=== PATIENT | male | born 1950 | race Caucasian/White ===

== ENCOUNTER 2018-05-23 21:56 | Emergency (ER) | payer BC, OTHER ==
[~2018-05-23] VITALS: Ht 180.3 cm; Wt 72.6 kg
[2018-05-23 22:07] VITALS: BP 177/100
--- NOTE | 2018-05-23 22:13 | NUR ---
PT AMBULATED TO BED 10 WITH VSS. ACCOMPANIED BY .
--- NOTE | 2018-05-23 22:30 | NUR ---
PT BIB SELF C/O FACIAL ITCHING AND PAIN FOR PAST 4-5 YEARS. PT STATES HE HAS BEEN SEEN BY PCP AND "THEY DONT KNOW WHAT IT IS ALL THEY DO IS GIVE ME SHOTS". REDNESS NOTED AROUND MOUTH , NO OPEN SKIN, NO SOB. PT SITTING IN BED, ANXIOUS, AT BEDSIDE.
--- NOTE | 2018-05-23 23:00 | NUR ---
DR JANE AT BEDSIDE EVALUATING PT.
[2018-05-23] MEDS ORDERED: methylPREDNISolone SS 125 MG in WATER STERILE 2 ML IM ONE (23:05)
[2018-05-23 23:40] VITALS: BP 177/98
--- NOTE | 2018-05-23 23:40 | NUR ---
Patient discharged with v/s stable. Written and verbal after care instructions given and explained. Patient alert, oriented and verbalized understanding of instructions. Ambulatory with steady gait. All questions addressed prior to discharge. ID band removed. Patient advised to follow up with PMD. Rx of ATARAX,PREDNISONE,CORTISPORIN given. Patient educated on indication of medication including possible reaction and side effects. Opportunity to ask questions provided and answered.
== END 2018-05-23 23:40 | disposition home or self-care (01) ==
LOC: MED 21:56
DX: R21 Rash and other nonspecific skin eruption (principal); H60.92 Unspecified otitis externa, left ear
CPT/HCPCS: 96372; 99283; J2930

== ENCOUNTER 2018-06-20 01:35 | Emergency (ER) | payer OTHER ==
[~2018-06-20] VITALS: Ht 175.3 cm; Wt 70.8 kg
[2018-06-20 01:49] VITALS: BP 142/80
--- NOTE | 2018-06-20 01:50 | NUR ---
PT PRESENTS TO ED WITH C/O ITCHING TO CHIN X 5 YEARS. PT DENIES CP, SOB, DIFFICULTY SWALLOWING. NO OBVIOUS RASH NOTED. PT PLACED INTO BED, PENDING MD CORDON.
[2018-06-20] MEDS ORDERED: diphenhydrAMINE 50 MG/ML VIAL IM ONE (02:15)
[2018-06-20] MEDS ORDERED: methylPREDNISolone SS 125 MG/2 ML VIAL IM ONE (02:15)
[2018-06-20 02:40] VITALS: BP 142/80
--- NOTE | 2018-06-20 02:40 | NUR ---
Patient discharged with v/s stable. Written and verbal after care instructions given and explained. Patient alert, oriented and verbalized understanding of instructions. Ambulatory with steady gait. All questions addressed prior to discharge. ID band removed. Patient advised to follow up with PMD. Rx of PREDNISONE, BENEDRYL given. Patient educated on indication of medication including possible reaction and side effects. Opportunity to ask questions provided and answered.
== END 2018-06-20 02:40 | disposition home or self-care (01) ==
LOC: MED 01:35
DX: T78.3XXA Angioneurotic edema, initial encounter (principal); R03.0 Elevated blood-pressure reading, without diagnosis of hypertension
CPT/HCPCS: 96372; 99283; J1200; J2930

== ENCOUNTER 2018-07-06 10:26 | Emergency (ER) | payer OTHER ==
[~2018-07-06] VITALS: Ht 170.2 cm; Wt 68.0 kg
[2018-07-06 11:13] VITALS: BP 128/79
--- NOTE | 2018-07-06 11:19 | NUR ---
PT. BIB ---SEEN IN OUR ER JUN 20, 2018 SAME COMPLAINT LOWER LIP SWELLING X LAST NIGHT PROGRESSED IN SWELLING AND PRURITUS X TODAY --PT ADMITS PRURITUS AND RASH PRIOR TO SWELLING--- NO AIRWAY COMPROMISE OR TONGUE INVOLVEMENT NOTED---FULL CLEAR SPEECH, NO ACCESSORY MUSCLE USE NOTED. RR EVEN AND UNLABORED. NO PAIN AT THIS TIME. NO N/V/D. ER MD MADE AWARE. SAFETY PRECAUTIONS IMPLEMENTED. WILL CONTINUE TO MONITOR.
--- NOTE | 2018-07-06 11:22 | NUR ---
RESIDENT AT BEDSIDE EVALUATING PATIENT AT THIS TIME.
[2018-07-06] MEDS ORDERED: DEXAMETHASONE 10 MG/ML VIAL IM ONE (12:25)
[2018-07-06] MEDS ORDERED: LORATADINE 10 MG TAB PO ONE (12:25)
--- NOTE | 2018-07-06 12:30 | NUR ---
PT. RESTING COMFORTABLY IN BED, RR EVEN AND UNLABORED. HOB ELEVATED. WILL CONTINUE TO MONITOR. AT BEDSIDE.
[2018-07-06 13:20] VITALS: BP 126/76
--- NOTE | 2018-07-06 13:20 | NUR ---
Patient discharged with v/s stable. Written and verbal after care instructions given and explained. Patient alert, oriented and verbalized understanding of instructions. Ambulatory with steady gait. All questions addressed prior to discharge. ID band removed. Patient advised to follow up with PMD. Rx of CLARITIN AND PEPCID given. Patient educated on indication of medication including possible reaction and side effects. Opportunity to ask questions provided and answered.
== END 2018-07-06 13:20 | disposition home or self-care (01) ==
LOC: MED 10:26
DX: T78.40XA Allergy, unspecified, initial encounter (principal); X58.XXXA Exposure to other specified factors, initial encounter
CPT/HCPCS: 96372; 99283; J1100

== ENCOUNTER 2018-07-11 12:30 | Emergency (ER) | payer OTHER ==
[~2018-07-11] VITALS: Ht 175.3 cm; Wt 67.8 kg
[2018-07-11 12:50] VITALS: BP 139/83
--- NOTE | 2018-07-11 15:08 | NUR ---
PT AMBULATED TO BED 8 Addendum: 07/11/18 at 1509 by MEDKCL PT AMBULATED TO BED 7
--- NOTE | 2018-07-11 15:08 | NUR ---
PT AMBULTED TO BED 7
--- NOTE | 2018-07-11 15:53 | NUR ---
ASSUMED PATIENT CARE, NURSING ASSESSMENT COMPLETED.
[2018-07-11] MEDS ORDERED: CLINDAMYCIN 600 MG/4 ML VIAL IM ONE (16:35)
[2018-07-11] MEDS ORDERED: DEXAMETHASONE 10 MG/ML VIAL IM ONE (16:35)
[2018-07-11] MEDS ORDERED: KETOROLAC 60 MG/2 ML VIAL IM ONE (16:35)
[2018-07-11 18:37] VITALS: BP 144/93
--- NOTE | 2018-07-11 18:39 | NUR ---
DISPO AND MEDICAL DECISION MAKING, DC HOME WITH INSTRUCTIONS AND PRESCRIPTIONS, ALL INSTRUCTIONS UNDERSTOOD BY PATIENT WELL, VS WNL, NO DISTRESS, DENIES PAIN.
== END 2018-07-11 18:39 | disposition home or self-care (01) ==
LOC: MED 12:30
DX: L73.9 Follicular disorder, unspecified (principal); E11.9 Type 2 diabetes mellitus without complications
CPT/HCPCS: 82948; 96372; 99283; J1100; J1885; J3490

== ENCOUNTER 2018-07-18 17:49 | Emergency (ER) | payer OTHER ==
[~2018-07-18] VITALS: Ht 167.6 cm; Wt 68.0 kg
[2018-07-18 18:11] VITALS: BP 139/103
--- NOTE | 2018-07-18 18:15 | NUR ---
VSS; PT AMBULATED TO LOBBY WITH .
--- NOTE | 2018-07-18 19:48 | NUR ---
PT AMBULATED TO BED 3 WITH VSS.
--- NOTE | 2018-07-18 19:53 | NUR ---
PATIENT PRESENTS TO ED WITH RASHES TO LIP AREA FOR NO S/S OF ANY DIFFICULTY BREATHING.DENIES N/V/D; SKIN IS PINK/WARM/DRY; AAOX4 WITH EVEN AND STEADY GAIT; LUNGS CLEAR BL; HR EVEN AND REGULAR; PT DENIES ANY FEVER, CP, SOB, OR COUGH AT THIS TIME; PATIENT STATES PAIN OF 0/10 AT THIS TIME; VSS; PATIENT POSITIONED FOR COMFORT; HOB ELEVATED; BEDRAILS UP X2; BED DOWN. ER MD MADE AWARE OF PT STATUS.
[2018-07-18] MEDS ORDERED: methylPREDNISolone SS 125 MG in WATER STERILE 2 ML IM ONE (21:50)
--- NOTE | 2018-07-18 22:07 | NUR ---
Patient discharged with v/s stable. Written and verbal after care instructions given and explained. Patient alert, oriented and verbalized understanding of instructions. Ambulatory with steady gait. All questions addressed prior to discharge. ID band removed. Patient advised to follow up with PMD. Rx of PREDNISONE AND BENEDRYL given. Patient educated on indication of medication including possible reaction and side effects. Opportunity to ask questions provided and answered.
[2018-07-18 22:09] VITALS: BP 124/70
== END 2018-07-18 22:07 | disposition home or self-care (01) ==
LOC: MED 17:49
DX: R21 Rash and other nonspecific skin eruption (principal); E11.9 Type 2 diabetes mellitus without complications; Z98.890 Other specified postprocedural states
CPT/HCPCS: 96372; 99283; J2930

== ENCOUNTER 2018-08-01 13:53 | Emergency (ER) | payer OTHER ==
[~2018-08-01] VITALS: Ht 175.3 cm; Wt 68.9 kg
[2018-08-01 14:00] VITALS: BP 144/84
--- NOTE | 2018-08-01 14:11 | NUR ---
PT AMBULATES TO BED 8
[2018-08-01] MEDS ORDERED: KEP500 PO (14:20)
[2018-08-01] MEDS ORDERED: GLIP5TAB4 PO (14:20)
[2018-08-01] MEDS ORDERED: METF1000 PO (14:20)
--- NOTE | 2018-08-01 14:25 | NUR ---
PATIENT PRESENTS TO ED WITH C/O RASH TO OROFACIAL AREA/NOSE/EYELIDS AND OUTER RIGHT THIGH X 1 DAY. DENIED N/V/D/FEVER. PT STATES THIS HAS HAPPENED BEFORE A FEW TIMES. NO SOB NOTED. RASH APPEARS RED/PUFFY. AAOX4 WITH EVEN AND STEADY GAIT, LUNGS CLEAR BL, PATIENT STATES PAIN OF 0/10 AT THIS TIME; VSS; PATIENT POSITIONED FOR COMFORT; HOB ELEVATED; BEDRAILS UP X2; BED DOWN. ER MD MADE AWARE OF PT STATUS.
[2018-08-01] MEDS ORDERED: methylPREDNISolone SS 125 MG/2 ML VIAL IVP ONE (15:00)
[2018-08-01] MEDS ORDERED: diphenhydrAMINE 50 MG/ML VIAL IVP ONE (15:00)
--- NOTE | 2018-08-01 15:22 | NUR ---
PT ASLEEP IN BED, AT BEDSIDE. NO ACUTE DISTRESS NOTED
[2018-08-01 16:37] VITALS: BP 144/84
== END 2018-08-01 16:38 | disposition home or self-care (01) ==
LOC: MED 13:53
DX: T78.40XA Allergy, unspecified, initial encounter (principal); E11.9 Type 2 diabetes mellitus without complications; Z79.84 Long term (current) use of oral hypoglycemic drugs; Z79.899 Other long term (current) drug therapy; X58.XXXA Exposure to other specified factors, initial encounter
CPT/HCPCS: 82948; 96374; 96375; 99283; J1200; J2930

== ENCOUNTER 2018-10-26 13:34 | Inpatient (IN) | payer OTHER ==
[~2018-10-26] VITALS: Ht 175.3 cm; Wt 70.8 kg
[~2018-10-26 13:34] MED LIST: GLIP5TAB4 PO; KEP500 PO; METF1000 PO
[2018-10-26 13:56] VITALS: BP 117/48
--- NOTE | 2018-10-26 14:09 | NUR ---
JULIEN MEDLEY EVALUATING PT
[2018-10-26] MEDS ORDERED: KETOROLAC 30 MG/ML VIAL IM ONE (14:10)
--- NOTE | 2018-10-26 16:17 | NUR ---
PT TO BED 7 VIA WHEELCHAIR
--- NOTE | 2018-10-26 16:37 | NUR ---
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 DENIES LOC. MILD SWELLING NOTED TO L KNEE, NO REDNESS OR BRUISING PRESENT. CAP REFIL <3 SECONDS, CMS INTACT. PT IS USING WHEELCHAIR DUE TO PAIN WHEN AMBULATING. SKIN IS PINK/WARM/DRY. BED IN LOW POSITION, SIDE RAIL UP X1, AT BEDSIDE.
--- NOTE | 2018-10-26 16:44 | NUR ---
DR. MEDLEY AT BEDSIDE
[2018-10-26] MEDS ORDERED: MORPHINE SULFATE 4 MG/ML SYR IM ONE (17:20)
--- NOTE | 2018-10-26 17:32 | NUR ---
PT LEFT TO CT
--- NOTE | 2018-10-26 17:56 | NUR ---
PT RETURNED FROM CT
--- NOTE | 2018-10-26 19:03 | NUR ---
PT RESTING IN BED, AT BEDSIDE
--- NOTE | 2018-10-26 19:04 | NUR ---
LEFT KNEE IMMOBILIZER PLACED ON PATIENT
[2018-10-26] MEDS ORDERED: NACL 0.9% 1,000 ML IV SCH (19:07)
[2018-10-26] MEDS ORDERED: ONDANSETRON 4 MG/2 ML VIAL IM/IVP PRN (19:10)
[2018-10-26] MEDS ORDERED: ZOLPIDEM 5 MG TAB PO PRN (19:10)
[2018-10-26] MEDS ORDERED: DOCUSATE SODIUM 100 MG GELCAP PO PRN (19:10)
[2018-10-26] MEDS ORDERED: HYDROcodone/APAP 5/325 MG 1 TAB TAB PO PRN (19:10)
[2018-10-26] MEDS ORDERED: ACETAMINOPHEN 325 MG TAB PO PRN (19:10)
--- NOTE | 2018-10-26 19:19 | NUR ---
X-RAY AT BEDSIDE.
--- NOTE | 2018-10-26 19:28 | NUR ---
LAB AT BEDSIDE
--- NOTE | 2018-10-26 19:29 | NUR ---
REPORT GIVEN TO ALIX SALDAÑA
--- NOTE | 2018-10-26 19:35 | NUR ---
RECEIVED REPORT FROM PIOTR SELF AT PT BEDSIDE. PT IS AAOX4 UNDERSTANDS [place] BUT PREFERS ER[place]AN, ON ROOM AIR. ABLE TO MAKE NEEDS KNOWN, ABLE TO FOLLOW COMMANDS. PT ABLE TO AMBULATE WITH STEADY GAIT, AND SKIN IS INTACT. PT HAS 20G IV TO RIGHT AC. DISCUSSED PLAN OF CARE WITH PT, PT VERBALIZED UNDERSTANDING. PT DENIES HAVING ANY PAIN. VITAL SIGNS STABLE, NO SIGNS OF DISTRESS NOTED. BED IN LOWEST POSITION, CALL LIGHT WITHIN REACH. WILL CONTINUE TO MONITOR. Addendum: 10/27/18 at 0439 by Jyotsna Rodriguez RN DISREGARD. WRONG INPUT.
[2018-10-26 19:44] LABS: BASOPHILS % (AUTO) 0.1 % (0.0-2.0); EOSINOPHILS % (AUTO) 0.3 % (0.0-4.0); HEMATOCRIT 41.9 % (36-52); LYMPHOCYTES # (AUTO) 1.2 K/uL (2.0-11.5); LYMPHOCYTES % (AUTO) 9.2 % (20.5-51.1); MEAN CORPUSCULAR HEMOGLOBIN 30 pg (27-31); MEAN CORPUSCULAR HGB CONC 34 g/dL (33-37); MEAN CORPUSCULAR VOLUME 89.7 fL (80-94); MONOCYTES # (AUTO) 0.8 K/uL (0.8-1.0); MONOCYTES % (AUTO) 5.8 % (1.7-9.3); NEUTROPHILS # (AUTO) 10.9 K/uL (1.8-7.7); NEUTROPHILS % (AUTO) 84.6 % (42.2-75.2); PLATELET COUNT (AUTO) 212 K/uL (140-450); RED BLOOD CELL COUNT(AUTO) 4.67 MIL/uL (4.20-6.10); WHITE BLOOD COUNT (AUTO) 12.9 K/uL (4.8-10.8)
--- NOTE | 2018-10-26 19:45 | NUR ---
Patient will be admitted to care of Dr. Harp. Admited to Med-Surg. Patient went to room 110-B, via gursalma by RN; patient assisted to bed, safety precautions in place. Belongings list completed. Report to PIOTR Collins. Addendum: 10/26/18 at 1999 by [email or web address] Patient will be admitted to care of Dr. Harp. Admited to Med-Surg. Patient went to room 110-B, via ela by RN; patient assisted to bed, safety precautions in place. Belongings list completed. Report to PIOTR Collins; RN aware patients will be bring list of medication.
--- NOTE | 2018-10-26 19:45 | NUR ---
PT ARRIVED TO UNIT VIA GURNEY. RECEIVED REPORT FROM HIGH VALUE ASSOCIATE ALIX AT PT BEDSIDE. PT IS AAOX4, ON ROOM AIR. ABLE TO MAKE NEEDS KNOWN, ABLE TO FOLLOW COMMANDS. PT UNABLE TO AMBULATE DUE TO FRACTURE TO LEFT LOWER EXTREMITY. PT STATUS POST FALL AT HOME, HAS ABRASION TO LEFT FRONTAL LOBE, PICTURES TAKEN AND ASSESSMENT WILL BE DONE. PT HAS 20G IV TO RIGHT AC. DISCUSSED PLAN OF CARE WITH PT, PT VERBALIZED UNDERSTANDING. OBTAINED MRSA SWAB AND SENT TO LAB. PT DENIES HAVING ANY PAIN. VITAL SIGNS STABLE, NO SIGNS OF DISTRESS NOTED. BED IN LOWEST POSITION WITH BED ALARM ON, CALL LIGHT WITHIN REACH. WILL CONTINUE TO MONITOR.
[2018-10-26 20:00] VITALS: BP 132/87
[2018-10-26 20:01] LABS: PROTHROMBIN TIME 9.8 secs (10.8-13.4)
[2018-10-26 20:03] LABS: ANION GAP 16.1 (8-16); CARBON DIOXIDE 25.2 mmol/L (21-32); CREATININE 1.2 mg/dL (0.7-1.3); POTASSIUM 4.3 mmol/L (3.5-5.1); TOTAL BILIRUBIN 0.9 mg/dL (0.0-1.0)
[2018-10-26] MEDS ORDERED: DEXTROSE 50% 50 ML SYR IVP PRN (20:10)
[2018-10-26] MEDS ORDERED: INSULIN LISPRO SLIDING SCALE 100 UNITS/ML VIAL SUBQ PRN (20:10)
[2018-10-26] MEDS ORDERED: LORazepam 2 MG/ML VIAL IVP PRN (20:10)
[2018-10-26 20:18] LABS: CHOL/HDL RATIO 2.7 (1-4.5); FREE T4 (FREE THYROXINE) 0.82 ng/dL (0.76-1.46); MAGNESIUM 1.9 mg/dL (1.8-2.4); PHOSPHORUS 3.8 mg/dL (2.5-4.9); THYROID STIMULATING HORMONE 1.74 uIU/mL (0.34-3.74)
[2018-10-26] MEDS: levETIRAcetam 500 MG TAB PO SCH (20:49)
[2018-10-26] MEDS: BLOOD GLUCOSE MONITORING 1 DEV DEV FS SCH (20:49)
[2018-10-26] MEDS: metFORMIN 500 MG TAB PO SCH (21:16)
--- NOTE | 2018-10-26 21:16 | NUR ---
ALL SCHEDULED PM MEDS GIVEN, PT TOLERATED WELL. GAVE DINNER ALONG WITH DM MEDICATIONS.
[2018-10-26] MEDS: MORPHINE SULFATE 2 MG/ML SYR IVP PRN (23:44)
--- NOTE | 2018-10-26 23:45 | NUR ---
ADMINISTERED PAIN MEDICATION FOR C/O 7/10 PAIN TO LEFT LOWER EXTREMITY. PT TOLERATED WELL. NO SIGNS OF DISTRESS NOTED. BED IN LOWEST POSITION WITH BED ALARM ON, CALL LIGHT WITHIN REACH. WILL CONTINUE TO MONITOR.
[2018-10-27] VITALS (7 sets, daily range): BP systolic 107–137; BP diastolic 64–82
--- NOTE | 2018-10-27 | NUR ---
PT DENIES HAVING ANY PAIN. VITAL SIGNS STABLE, NO SIGNS OF DISTRESS NOTED. PT REFUSED SCHEDULED ATIVAN. BED IN LOWEST POSITION WITH BED ALARM ON, CALL LIGHT WITHIN REACH. WILL CONTINUE TO MONITOR.
--- NOTE | 2018-10-27 02:18 | NUR ---
IV PUMP ALARM KEPT GOING OFF, PT'S ARM WAS FOLDED UNDER HIM. WOKE PT UP AND ASKED HIM TO KEEP ARM STRAIGHT.
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
--- NOTE | 2018-10-27 04:00 | NUR ---
PT DENIES HAVING ANY PAIN. VITAL SIGNS STABLE, NO SIGNS OF DISTRESS NOTED. BED IN LOWEST POSITION WITH BED ALARM ON, CALL LIGHT WITHIN REACH. WILL CONTINUE TO MONITOR.
[2018-10-27] MEDS: DEXT 5% /NACL 0.9% 1,000 ML IV SCH ×2 (04:54→20:24)
[2018-10-27] MEDS: BLOOD GLUCOSE MONITORING 1 DEV DEV FS SCH ×4 (06:22→19:04)
[2018-10-27] MEDS: glipiZIDE 5 MG TAB PO SCH ×3 (06:22→19:05)
--- NOTE | 2018-10-27 06:22 | NUR ---
DISCUSSED PATIENT'S DIABETES MEDICATIONS WITH DR SYKES. PT'S CURRENT BLOOD SUGAR IS 106, BUT PT IS NPO FOR POSSIBLE SURGERY, WITH D5NS @ 60ML/HR, AND HAS GLIPIZIDE AND METFORMIN DUE. PER DR SYKES, OK TO HOLD MEDICATIONS.
--- NOTE | 2018-10-27 06:40 | NUR ---
DR ALFARO AT BEDSIDE.
[2018-10-27] MEDS: metFORMIN 500 MG TAB PO SCH ×3 (06:51→19:05)
[2018-10-27] MEDS: MORPHINE SULFATE 2 MG/ML SYR IVP PRN ×3 (06:53→22:59)
[2018-10-27 07:37] LABS: BASOPHILS % (AUTO) 0.2 % (0.0-2.0); EOSINOPHILS # (AUTO) 0.2 K/uL (0-0.4); HEMATOCRIT 39.1 % (36-52); HEMOGLOBIN 13.4 g/dL (12.0-18.0); LYMPHOCYTES # (AUTO) 1.4 K/uL (2.0-11.5); LYMPHOCYTES % (AUTO) 17.3 % (20.5-51.1); MEAN CORPUSCULAR HEMOGLOBIN 31 pg (27-31); MEAN CORPUSCULAR HGB CONC 34 g/dL (33-37); MEAN CORPUSCULAR VOLUME 89.9 fL (80-94); MONOCYTES # (AUTO) 0.8 K/uL (0.8-1.0); MONOCYTES % (AUTO) 10.1 % (1.7-9.3); NEUTROPHILS # (AUTO) 5.9 K/uL (1.8-7.7); NEUTROPHILS % (AUTO) 70.4 % (42.2-75.2); PLATELET COUNT (AUTO) 187 K/uL (140-450); RED BLOOD CELL COUNT(AUTO) 4.35 MIL/uL (4.20-6.10); RED CELL DISTRIBUTION WIDTH 12.8 % (11.6-13.7); WHITE BLOOD COUNT (AUTO) 8.4 K/uL (4.8-10.8)
--- NOTE | 2018-10-27 07:38 | NUR ---
ENDORSED PT TO DAY SHIFT PIOTR PATEL FOR CONTINUITY OF CARE. PT IN STABLE CONDITION.
--- NOTE | 2018-10-27 07:39 | NUR ---
RECEIVED REPORT FROM DAY SHIFT RNREHAN. PATIENT SLEEPING. NO SIGNS OF DISTRESS ON RA. SAFETY PRECAUTIONS IN PLACE.
[2018-10-27 08:25] LABS: PROTHROMBIN TIME 9.8 secs (10.8-13.4)
[2018-10-27] MEDS: levETIRAcetam 500 MG TAB PO SCH ×2 (08:45→20:23)
--- NOTE | 2018-10-27 08:45 | NUR ---
ADMINSTERED SCHEDULED MEDICATIONS. PATIENT TOLERATED WELL. NO SIGNS OF DISTRESS. SAFETY PRECAUTIONS IN PLACE.
--- NOTE | 2018-10-27 08:46 | NUR ---
PATIENT HAS BEEN SCREENED AND CATEGORIZED MODERATE NUTRITION RISK. PATIENT WILL BE SEEN WITHIN 3-5 DAYS OF ADMISSION. 10/29/18LE[address]
[2018-10-27 08:49] LABS: ANION GAP 14.2 (8-16); CARBON DIOXIDE 25.9 mmol/L (21-32); POTASSIUM 4.1 mmol/L (3.5-5.1)
[2018-10-27 08:50] LABS: CREATININE 0.8 mg/dL (0.7-1.3)
--- NOTE | 2018-10-27 11:30 | NUR ---
PATIENT GLUCOSE IN NORMAL RANGE. NO COVERAGE NEEDED.
--- NOTE | 2018-10-27 12:30 | NUR ---
GAVE REPORT TO OR NURSE. PATIENT IN STABLE CONDITION. VITALS STABLE, CONSENT SIGNED. PATIENT TRANSPORTED VIA GURNEY TO OR.
[2018-10-27] MEDS ORDERED: BUPIVACAINE-MPF 0.5% 30 ML VIAL INJ ONE ×2 (12:31→14:58)
[2018-10-27] MEDS ORDERED: ceFAZolin 1,000 MG VIAL ONE ×2 (12:31→18:52)
[2018-10-27] MEDS ORDERED: DESFLURANE 240 ML BTL INH ONE (13:18)
[2018-10-27] MEDS ORDERED: KETOROLAC 30 MG/ML VIAL ONE (13:18)
[2018-10-27] MEDS ORDERED: PROPOFOL 200 MG/20 ML VIAL IV ONE ×2 (13:18)
[2018-10-27] MEDS ORDERED: ONDANSETRON 4 MG/2 ML VIAL ONE (13:18)
[2018-10-27] MEDS ORDERED: fentaNYL 0.05 MG/ML VIAL ONE (13:20)
[2018-10-27] MEDS ORDERED: HYDROmorphone PFS 2 MG/ML SYR ONE (13:20)
[2018-10-27] MEDS ORDERED: ONDANSETRON 4 MG/2 ML VIAL IVP PRN (13:40)
[2018-10-27] MEDS ORDERED: HYDROmorphone 1 MG/ML AMP IVP PRN (13:40)
--- NOTE | 2018-10-27 16:00 | NUR ---
RECEIVED REPORT FROM REBRANDER. VITALS SIGNS STABLE. PATIENT IS MEDICATED AND NOT FULLY ALERT BUT SHOWS NO SIGNS OF DISTRESS AND DENIES NAUSEA. TRANSFERRED PATIENT TO [facility] BED ORDERED. DRESSING ON LEFT KNEE IS DRY AND INTACT WITH NO SIGNS OF DRAINAGE. INCISION CLOSED WITH HERMES PER REBRANDER. KNEE IMMOBILIZER IN PLACE ON LEFT KNEE. FAMILY AT BEDSIDE. PATIENT IN STABLE CONDITION.
--- NOTE | 2018-10-27 18:30 | NUR ---
TOOK GLUCOSE AFTER DINNER MEAL, PATIENT GLUCOSE 117. HELD ORAL ANTI-GLYCEMICS.
--- NOTE | 2018-10-27 19:29 | NUR ---
GAVE REPORT TO SNOW MAKER RN. PATIENT IN STABLE CONDITION.
--- NOTE | 2018-10-27 19:30 | NUR ---
RECEIVED FROM AM RN IN BED IN SITTING UP POSITION AWAKE AND ALERT. TALKING WELL AND AT BEDSIDE. PT. ABLE TO CARRY A GOOD CONVERSATION. S/P THIS P.M. FOR ORIF OF LEFT KNEE. NO PAIN COMPLAINTS AT THIS TIME. CALL LIGHT WITH IN REACH. NO SOB. IVF SITE INTACT AND NO INFILTRATION. DRESSING TO LEFT KNEE INTACT AND NO BLEEDING NOTED. ENCOURAGED TO USE CALL LIGHT FOR ANY HELP HE MAY NEED OR IF IN PAIN. "OK"
--- NOTE | 2018-10-27 20:29 | NUR ---
P.O. MEDICATION TAKEN WELL. ABLE TO VERBALIZE SIMPLE NEEDS WELL WITH ME .ENCOURAGED TO CALL IF IN PAIN AND IF HE NEEDS HELP. "OK" TURNED OFF TV REQUESTED. "I WANT TO SLEEP."
--- NOTE | 2018-10-27 23:03 | NUR ---
AWAKE AND REQUESTED FOR PAIN RELIEVER. MEDICATED WITH MORPHINE 1 MG. IVP .
[2018-10-28 00:38] LABS: APPEARANCE,URINE CLEAR (CLEAR); BILIRUBIN,URINE NEGATIVE (NEGATIVE); BLOOD, URINE NEGATIVE (NEGATIVE); COLOR,URINE YELLOW (YELLOW); LEUKOCYTE ESTERASE ,URINE NEGATIVE (NEGATIVE); NITRITE, URINE NEGATIVE (NEGATIVE); PH,URINE 5.5 (5.0-9.0); UGLUCOSE NEGATIVE (NEGATIVE)
[2018-10-28 00:44] LABS: BARBITURATE, URINE NEG. ng/ml (NEG <=200); BENZODIAZEPINE, URINE NEG. ng/mL (NEG <=200); CANNABINOID, URINE NEG. ng/mL (NEG <=50); COCAINE, URINE NEG. ng/mL (NEG <=300); OPIATE, URINE POS. ng/mL (NEG <=2000); PHENCYCLIDINE SCREEN,URINE NEG. ng/mL (NEG <=25)
[2018-10-28 01:07] VITALS: BP 126/66
--- NOTE | 2018-10-28 01:15 | NUR ---
PT. WOKE UP FROM SLEEP POST MORPHINE MEDICATION. PT. REQUESTED FOR PAIN RELIEVER. COMPLAINED OF LEFT KNEE PAIN. MEDICATED WITH DILAUDID 0.5 MG IVP ORDERED. ABLE TO USE CALL LIGHT FOR HELP. URINE SPECIMEN SENT TO LAB ORDERED.
--- NOTE | 2018-10-28 03:46 | NUR ---
SLEEPING WELL AT THIS TIME. NO RESTLESSNESS. CALL LIGHT WITH IN REACH. IVF SITE INTACT AND NO INFILTRATION.
[2018-10-28 04:49] VITALS: BP 127/63
[2018-10-28] MEDS: MORPHINE SULFATE 2 MG/ML SYR IVP PRN (04:53)
--- NOTE | 2018-10-28 04:56 | NUR ---
PT. AWAKE AT THIS TIME AND COMPLAINED OF LEFT KNEE. REQUESTED FOR PAIN RELIEVER. A/O X 4. VERBALIZES WELL. MEDICATED ORDERED. CALL LIGHT WITH IN REACH.
[2018-10-28] MEDS: BLOOD GLUCOSE MONITORING 1 DEV DEV FS SCH ×4 (05:05→19:51)
[2018-10-28] MEDS: DEXT 5% /NACL 0.9% 1,000 ML IV SCH (05:11)
--- NOTE | 2018-10-28 06:11 | NUR ---
SLEEPING AT THIS TIME. MEDICATED WITH MORPHINE IVP 1 MG ( AT 0453) ORDERED . ABLE T O VERBALIZE NEEDS WELL. DRESSING TO LEFT KNEE INTACT AND NO BLEEDING. USES CALL LIGHT WITH FOR NEEDS AND HELP. WILL ENDORSE TO AM RN FOR CONTINUITY OF CARE.
[2018-10-28 07:11] LABS: BASOPHILS % (AUTO) 0.1 % (0.0-2.0); EOSINOPHILS % (AUTO) 0.5 % (0.0-4.0); HEMATOCRIT 33.1 % (36-52); HEMOGLOBIN 11.4 g/dL (12.0-18.0); LYMPHOCYTES # (AUTO) 0.9 K/uL (2.0-11.5); MEAN CORPUSCULAR HEMOGLOBIN 31 pg (27-31); MEAN CORPUSCULAR HGB CONC 35 g/dL (33-37); MEAN CORPUSCULAR VOLUME 90.4 fL (80-94); MONOCYTES # (AUTO) 0.8 K/uL (0.8-1.0); NEUTROPHILS # (AUTO) 6.6 K/uL (1.8-7.7); NEUTROPHILS % (AUTO) 78.4 % (42.2-75.2); PLATELET COUNT (AUTO) 155 K/uL (140-450); RED BLOOD CELL COUNT(AUTO) 3.66 MIL/uL (4.20-6.10); RED CELL DISTRIBUTION WIDTH 12.6 % (11.6-13.7); WHITE BLOOD COUNT (AUTO) 8.4 K/uL (4.8-10.8)
[2018-10-28 07:21] LABS: ANION GAP 12.6 (8-16); CARBON DIOXIDE 26.2 mmol/L (21-32); CREATININE 0.6 mg/dL (0.7-1.3); POTASSIUM 3.8 mmol/L (3.5-5.1)
[2018-10-28] MEDS ORDERED: HYDROmorphone 1 MG/ML AMP IVP PRN (07:40)
[2018-10-28] MEDS ORDERED: HYDROmorphone 1 MG/ML AMP IVP SCH (07:43)
[2018-10-28] MEDS ORDERED: MORPHINE SULFATE 2 MG/ML SYR IVP PRN ×2 (07:45→16:45)
--- NOTE | 2018-10-28 07:50 | NUR ---
PATIENT WAS AWAKE, ALERT. RESPIRATION EVEN, UNLABOR ON ROOM AIR. SKIN DRY AND WARM. IV PATENT AND INTACT. COMPLAINED OF INCISIONAL PAIN 10/10, WILL MEDICATE PER ORDER. PLAN OF CARE WAS DISCUSSED WITH PATIENT. BED AT LOW POSITION, SIDE RAILS UP. CALL LIGHT WITHIN REACH
[2018-10-28 08:00] VITALS: BP 130/62
[2018-10-28] MEDS: levETIRAcetam 500 MG TAB PO SCH ×2 (08:35→20:18)
[2018-10-28] MEDS: metFORMIN 500 MG TAB PO SCH ×2 (08:47→16:41)
[2018-10-28] MEDS: NACL 0.9% 1,000 ML IV SCH (08:48)
--- NOTE | 2018-10-28 10:00 | NUR ---
PATIENT WAS AWAKE, ALERT. RESPIRATION EVEN, UNLABOR ON ROOM AIR. NO DISTRESS NOTED AT THIS TIME. FAMILY AT BEDSIDE
--- NOTE | 2018-10-28 11:56 | NUR ---
PATIENT WAS AWAKE, ALERT. RESPIRATION EVEN, UNLABOR ON ROOM AIR. DENIED PAIN AT THIS TIME. CALL LIGHT WITHIN REACH
[2018-10-28] MEDS: HYDROmorphone 1 MG/ML AMP IVP PRN ×3 (12:26→23:59)
[2018-10-28] MEDS ORDERED: HYDROcodone/APAP 7.5/325 MG 1 TAB PO PRN (12:50)
[2018-10-28] MEDS ORDERED: KETOROLAC 30 MG/ML VIAL IVP PRN (12:50)
--- NOTE | 2018-10-28 14:02 | NUR ---
PATIENT WAS AWAKE, ALERT. RESPIRATION EVEN, UNLABOR ON ROOM AIR. NO DISTRESS NOTED AT THIS TIME
[2018-10-28 16:00] VITALS: BP 124/78
--- NOTE | 2018-10-28 16:15 | NUR ---
PATIENT WAS AWAKE, ALERT, WATCHING TV COMFORTABLY. RESPIRATION EVEN, UNLABOR ON ROOM AIR. DENIED PAIN AT THIS TIME. CALL LIGHT WITHIN REACH
[2018-10-28] MEDS: glipiZIDE 5 MG TAB PO SCH (16:41)
--- NOTE | 2018-10-28 18:19 | NUR ---
PATIENT WAS AWAKE, ALERT, EATING DINNER COMFORTABLY. RESPIRATION EVEN, UNLABOR ON ROOM AIR. IV PATENT AND INTACT. FAMILY AT BEDSIDE. NO DISTRESS NOTED AT THIS TIME
--- NOTE | 2018-10-28 19:20 | NUR ---
ENDORSEMENT GIVEN TO PARTS PROCESSOR NURSE. PATIENT IS STABLE AT THIS TIME
--- NOTE | 2018-10-28 19:21 | NUR ---
RECEIVED BEDSIDE REPORT FROM DAY SHIFT NURSE. PT AAOX4. DAUGHTER AT BEDSIDE. NO S/S OF SOB OR ANY RESPIRATORY DISTRESS NOTED. SKIN WARM AND DRY TO TOUCH. IV SITE R FA, 20G, RUNNING NS @60MLS/HR. INTACT, PATENT, AND ASYMPTOMATIC. POC REVIEWED AND DISCUSSED WITH PT. PT VERBALIZED UNDERSTANDING. BED IN LOW POSITION, CALL LIGHT WITHIN REACH.
--- NOTE | 2018-10-28 19:43 | NUR ---
PT C/O TIBIAL PAIN, 02/24. GIVEN DILAUDID ORDERED. PT TOLERATED WELL. BS CHECKED 68, GIVEN ORANGE JUICE. WILL CHECK BS AGAIN IN 1HR.
--- NOTE | 2018-10-28 20:27 | NUR ---
GIVEN ANCEF, HEPARIN, KEPPRA ORDERED. PT TOLERATED WELL. BS CHECKED AGAIN, 88, WITHIN NORMAL RANGE. WILL CONTINUE TO MONITOR.
--- NOTE | 2018-10-28 22:30 | NUR ---
PT SLEEPING IN BED COMFORTABLY. NO S/S OF SOB OR ANY RESP DISTRESS NOTED. BED IN LOW POSITION, CALL LIGHT WITHIN REACH.
--- NOTE | 2018-10-28 23:59 | NUR ---
PT C/O LEG PAIN 10/10, GIVEN DILAUDID ORDERED. PT TOLERATED WELL
[2018-10-29] VITALS: BP 132/74
--- NOTE | 2018-10-29 00:15 | NUR ---
LAB INFORMED NARES MRSA CAME IN POSITIVE. NOTIFIED RESIDENT DOCTOR. CONTACT PRECAUTION INITIATED ORDERED.
[2018-10-29] MEDS ORDERED: CHLORHEXADINE GLUC 2% CLOTH TP SCH ×2 (00:20→11:25)
[2018-10-29] MEDS ORDERED: MUPIROCIN CA NASAL 2% 1GM TUBE NS SCH ×2 (00:20→11:25)
[2018-10-29] MEDS: NACL 0.9% 1,000 ML IV SCH (02:03)
--- NOTE | 2018-10-29 02:22 | NUR ---
PT SLEEPING. BREATHING EVEN AND UNLABORED. EMPTY URINAL. NO ACUTE DISTRESS NOTED.
--- NOTE | 2018-10-29 04:23 | NUR ---
PT SLEEPING IN BED COMFORTABLY. NO S/S OF SOB OR ANY RESP DISTRESS NOTED. BED IN LOW POSITION, CALL LIGHT WITHIN REACH.
[2018-10-29] MEDS: HYDROmorphone 1 MG/ML AMP IVP PRN (05:07)
--- NOTE | 2018-10-29 05:07 | NUR ---
PT C/O LEG PAIN 10/10, GIVEN DILAUDID DR. ORDERED. GIVEN ANCEF DR. ORDERED. PT TOLERATED WELL. WILL CONTINUE TO MONITOR.
[2018-10-29] MEDS: BLOOD GLUCOSE MONITORING 1 DEV DEV FS SCH ×2 (05:25→11:44)
[2018-10-29] MEDS: glipiZIDE 5 MG TAB PO SCH (06:35)
--- NOTE | 2018-10-29 07:22 | NUR ---
ENDORSED PT TO DAY SHIFT NURSEFAM. PT IN STABLE CONDITION.
--- NOTE | 2018-10-29 07:25 | NUR ---
RECEIVED BEDSIDE REPORT FROM COPYRIGHT CLERK RN. PT A/O X4. DISCUSSED PLAN OF CARE WITH PT. PT IS COOPERATIVE BUT UNHAPPY AT THIS TIME BECAUSE JUST TOLD HIM HE WILL NOT BE DISCHARGED TODAY. NO S/S DISTRESS. VSS. PEDAL PULSES 2+ BILATERALLY. SENSATION AND MOVEMENT INTACT IN LLE. S/P ORIF FOR DX: LT TIBIAL PLATEAU FRACTURE, DRESSING C/D/I. KNEE IMMOBILIZER IN PLACE. SKIN IS OTHERWISE INTACT. IV SITE PATENT AND ASYMPTOMATIC, INFUSING IVF PER MD ORDERS. BED IN LOW POSITION. CALL LIGHT WITHIN REACH. WILL CONTINUE TO MONITOR.
[2018-10-29 08:00] VITALS: BP 113/70
[2018-10-29] MEDS: metFORMIN 500 MG TAB PO SCH (08:40)
[2018-10-29] MEDS: levETIRAcetam 500 MG TAB PO SCH (08:40)
--- NOTE | 2018-10-29 08:47 | NUR ---
SCHEDULED MEDICATIONS ADMINISTERED. IS NOW AT BEDSIDE. BROUGHT STERLING'S FOR PT. EDUCATED PT ON [facility] DIET PROVIDED HERE FOR BLOOD SUGAR CONTROL. PT VERBALIZED UNDERSTANDING BUT REFUSED TO EAT PROVIDED HOSPITAL FOOD, DOES NOT WANT ANY HOSPITAL FOOD ORDERED.
--- NOTE | 2018-10-29 08:51 | NUR ---
DR. RICHTER AT BEDSIDE TO DISCUSS POC WITH PATIENT AND AT BEDSIDE.
--- NOTE | 2018-10-29 09:18 | NUR ---
PHYSICAL THERAPY HERE TO WORK WITH PATIENT.
[2018-10-29] MEDS ORDERED: CIPR500T4 PO (10:21)
--- NOTE | 2018-10-29 10:44 | NUR ---
LEFT MESSAGE FOR CASE MANAGEMENT REGARDING COORDINATION OF HOME HEALTH PHYSICAL THERAPY.
--- NOTE | 2018-10-29 10:54 | NUR ---
CM WORKED ON HOME HEALTH ARRANGEMENTS
--- NOTE | 2018-10-29 10:54 | NUR ---
CARLIN called Ramona from [facility] [phone]. CARLIN faxed patient's information to [phone] to coordinate PT. CARLIN called Ramona to confirm that fax was received. Per Ramona, patient will be accepted. CARLIN/BOBBY will follow up as needed.
[2018-10-29] MEDS ORDERED: HYDR-5123 PO (10:57)
--- NOTE | 2018-10-29 11:03 | NUR ---
PT SEEN UP WITH PHYSICAL THERAPY.
--- NOTE | 2018-10-29 11:15 | NUR ---
CARLIN confirmed with Sagar from [facility] [phone] that they would call patient to make arrangements. SW informed assigned nurse, Elizabeth. SW/CM will follow up as needed.
--- NOTE | 2018-10-29 11:17 | NUR ---
INFORMED PT THAT [facility] PHYSICAL THERAPY PLAN TO WORK WITH PATIENT TOMORROW 10/30/18 AT HIS HOME. THEY WILL CALL PATIENT TO SET UP TIME.
--- NOTE | 2018-10-29 11:44 | NUR ---
POC BS IS 64 MG/DL. PATIENT IS AOX4, NO OTHER S/S HYPOGLYCEMIA. GAVE PATIENT ORANGE JUICE.
--- NOTE | 2018-10-29 12:15 | NUR ---
PATIENT FINISHED 2 ORANGE JUICE BOXES. REFUSED POC BS CHECK AGAIN. NO S/S HYPOGLYCEMIA AT THIS TIME.
--- NOTE | 2018-10-29 12:25 | NUR ---
DISCHARGE PAPERWORK, INCLUDING INSTRUCTIONS TO F/U WITH PCP AND SURGEON DR. ALFARO, GIVEN TO PATIENT. NEW PRESCRIPTION/MEDICATION TEACHING AND MEDICATION RECONCILIATION TEACHING GIVEN TO PATIENT. IV SITE REMOVED WITH MINIMAL BLOOD LOSS AND LUMEN COMPLETELY INTACT. ID BANDS REMOVED. PHOTO TAKEN OF ABRASION ON HEAD AND SURGICAL INCISION ON LT KNEE. EDUCATED PT ON HOW TO TAKE CARE OF INCISION. NEW DRESSING APPLIED WITH KNEE IMMOBILIZER. PT TO FOLLOW UP WITH SURGEON. NO LIFTING MORE THAN 5 LBS OR WORK/PHYSICAL DUTY UNTIL CLEARED BY SURGEON. VACCINATIONS UP TO DATE. ALL PERSONAL BELONGINGS ARE WITH PATIENT. PATIENT DISCHARGED VIA WHEELCHAIR AND WILL GO HOME WITH FAMILY MEMBER VIA PRIVATE VEHICLE.
== END 2018-10-29 12:25 | disposition home health service (06) | DRG 492 ==
LOC: MED 13:34 → MTU 19:07
PROVIDERS: ADMIT General Practice; ATTEND General Practice
PROC: 0QSH04Z Reposition Left Tibia with Internal Fixation Device, Open Approach (ICD-10-PCS; principal; 2018-10-27 13:00)
DX: S82.142A Displaced bicondylar fracture of left tibia, initial encounter for closed fracture (principal); N17.0 Acute kidney failure with tubular necrosis; D68.59 Other primary thrombophilia; J90 Pleural effusion, not elsewhere classified; G40.909 Epilepsy, unspecified, not intractable, without status epilepticus; F32.9 Major depressive disorder, single episode, unspecified; E11.9 Type 2 diabetes mellitus without complications; S00.81XA Abrasion of other part of head, initial encounter; E78.5 Hyperlipidemia, unspecified; D64.9 Anemia, unspecified; X58.XXXA Exposure to other specified factors, initial encounter; Y93.89 Activity, other specified; Y92.89 Other specified places as the place of occurrence of the external cause; Y99.8 Other external cause status
CPT/HCPCS: 36415; 70450; 71045; 73562; 73590; 73700; 76001; 80048; 80053; 80305; 81003; 82150; 82374; 82948; 83036; 83605; 83690; 83735; 83880; 84100; 84134; 84439; 84443; 84484; 85025; 85610; 85730; 87081; 93005; 96372; 97110; 97116; 97161-GP; 97530; 99285; C1713; J0690; J1170; J1644; J1815; J1885; J2270; J2405; J2704; J3010; J3490; J7030; J7042; J7060; Q0092

== ENCOUNTER 2021-05-18 15:06 | Emergency (ER) | payer OTHER ==
[~2021-05-18 15:06] MED LIST changes: +CIPR500T4 PO; +GLIP5TAB14 PO; -GLIP5TAB4 PO; +HYDR-5080 PO
--- NOTE | 2021-05-18 17:44 | NUR ---
PT CALLED IN LOBBY, NO ANSWER. MADE AWARE.
--- NOTE | 2021-05-18 18:04 | NUR ---
PT CALLED IN LOBBY SECOND TIME, NO ANSWER. MADE AWARE.
--- NOTE | 2021-05-18 18:14 | NUR ---
PT CALLED IN LOBBY THIRD TIME, PT CALLED IN PHONE VM LEFT. MADE AWARE.
== END 2021-05-18 17:54 | disposition left against medical advice (07) ==
LOC: MED 15:06
DX: M79.606 Pain in leg, unspecified (principal); Z53.21 Procedure and treatment not carried out due to patient leaving prior to being seen by health care provider

== ENCOUNTER 2023-01-27 20:45 | Emergency (ER) | payer OTHER ==
[~2023-01-27] VITALS: Ht 175.3 cm; Wt 74.8 kg
[~2023-01-27 20:45] MED LIST changes: +METF-1274 PO; -METF1000 PO
[2023-01-27 21:44] VITALS: BP 184/99; PULSE 73; RESP 18; TEMP 97.2; O2SAT 98
[2023-01-27] MEDS ORDERED: MORPHINE SULFATE 4 MG/ML SYR IM ONE (23:05)
[2023-01-27] MEDS ORDERED: KETOROLAC 15 MG/ML VIAL IM ONE (23:05)
== END 2023-01-28 02:00 | disposition home or self-care (01) ==
LOC: MED 20:45
DX: M79.672 Pain in left foot (principal); M79.605 Pain in left leg; J45.909 Unspecified asthma, uncomplicated; E11.9 Type 2 diabetes mellitus without complications; Z86.69 Personal history of other diseases of the nervous system and sense organs; Z98.890 Other specified postprocedural states; Z79.899 Other long term (current) drug therapy; Z79.2 Long term (current) use of antibiotics
CPT/HCPCS: 93971; 96372; 99285; J1885; J2270